=== PATIENT | female | born 1940 | race Caucasian/White ===

== ENCOUNTER 2017-01-05 05:43 | Inpatient (IN) | payer OTHER, MEDICARE ==
[~2017-01-05] VITALS: Ht 144.8 cm; Wt 76.5 kg
[~2017-01-05 05:43] MED LIST: AMLODIPINE BESYL5 MG PO; CITRATE OF MAG296 ML PO; COLACE10 MG/ML PO
[2017-01-05 06:45] VITALS: BP 190/88
[2017-01-05 16:00] VITALS: BP 148/70
[2017-01-05 20:06] VITALS: BP 112/56
[2017-01-05 23:48] VITALS: BP 101/52
[2017-01-06 04:48] VITALS: BP 115/56
[2017-01-06 06:54] LABS: HEMATOCRIT 27.5 % (36.0-46.0); MCHC 30.5 G/DL (30.0-36.0); MCV 68.8 FL (83-99); MEAN PLAT.VOLUME 9.4 uM^3 (9.5-12.4); PLATELET COUNT 311 K/uL (156-360); RBC DIS.WIDTH-CV 19.6 % (11.8-14.6); RBC DIS.WIDTH-SD 47.9 % (39-53); WHITE BLOOD COUNT 18.8 K/uL (4.1-10.2)
[2017-01-06 06:56] LABS: ANION GAP 4 MEQ/L (2-14); CHLORIDE 101 MEQ/L (99-109); GFR ESTIMATE (CALCULATED) > 59 mL/min/; GLUCOSE 185 mg/dL (70-99); MAGNESIUM 1.6 mg/dl (1.3-2.7); POTASSIUM 4.4 MEQ/L (3.7-5.4); SAMPLE HEMOLYSIS CHECK 0; SAMPLE ICTERIC CHECK 0; SAMPLE LIPEMIA CHECK 0; SODIUM 132 MEQ/L (136-147); UREA NITROGEN (BUN) 13 mg/dL (9-23)
[2017-01-06 07:00] VITALS: BP 106/55
[2017-01-06 11:28] VITALS: BP 105/55
[2017-01-06 16:17] VITALS: BP 120/57
[2017-01-06 20:04] VITALS: BP 125/60
[2017-01-06 23:20] VITALS: BP 138/60
[2017-01-07 03:14] VITALS: BP 135/60
[2017-01-07 06:21] LABS: HEMATOCRIT 26.8 % (36.0-46.0); MCH 20.6 PG (29.0-34.0); MCHC 29.9 G/DL (30.0-36.0); MCV 68.9 FL (83-99); MEAN PLAT.VOLUME 9.3 uM^3 (9.5-12.4); PLATELET COUNT 249 K/uL (156-360); RBC DIS.WIDTH-CV 19.7 % (11.8-14.6); RBC DIS.WIDTH-SD 48.1 % (39-53); RED BLOOD COUNT 3.89 M/uL (3.80-5.20)
[2017-01-07 06:38] LABS: ANION GAP 5 MEQ/L (2-14); CHLORIDE 107 MEQ/L (99-109); GFR ESTIMATE (CALCULATED) > 59 mL/min/; GLUCOSE 141 mg/dL (70-99); MAGNESIUM 1.6 mg/dl (1.3-2.7); POTASSIUM 4.3 MEQ/L (3.7-5.4); SAMPLE HEMOLYSIS CHECK 0; SAMPLE ICTERIC CHECK 0; SAMPLE LIPEMIA CHECK 0; UREA NITROGEN (BUN) 8 mg/dL (9-23)
[2017-01-07 06:40] LABS: SODIUM 141 MEQ/L (136-147)
[2017-01-07 07:05] VITALS: BP 133/99
[2017-01-07 11:40] VITALS: BP 162/70
[2017-01-07 16:57] VITALS: BP 142/78
[2017-01-07 18:58] VITALS: BP 138/70
[2017-01-07 22:46] VITALS: BP 156/76
[2017-01-08 03:49] VITALS: BP 149/67
[2017-01-08 06:32] LABS: HEMATOCRIT 26.9 % (36.0-46.0); MCH 20.5 PG (29.0-34.0); MCHC 30.1 G/DL (30.0-36.0); MCV 68.1 FL (83-99); MEAN PLAT.VOLUME 9.6 uM^3 (9.5-12.4); PLATELET COUNT 224 K/uL (156-360); RBC DIS.WIDTH-CV 19.5 % (11.8-14.6); RBC DIS.WIDTH-SD 47.7 % (39-53); RED BLOOD COUNT 3.95 M/uL (3.80-5.20); WHITE BLOOD COUNT 8.6 K/uL (4.1-10.2)
[2017-01-08 06:51] LABS: ANION GAP 4 MEQ/L (2-14); CHLORIDE 106 MEQ/L (99-109); GFR ESTIMATE (CALCULATED) > 59 mL/min/; GLUCOSE 135 mg/dL (70-99); MAGNESIUM 1.6 mg/dl (1.3-2.7); POTASSIUM 3.9 MEQ/L (3.7-5.4); SAMPLE HEMOLYSIS CHECK 0; SAMPLE ICTERIC CHECK 0; SAMPLE LIPEMIA CHECK 0; SODIUM 141 MEQ/L (136-147); UREA NITROGEN (BUN) 6 mg/dL (9-23)
[2017-01-08 08:59] VITALS: BP 174/79
[2017-01-08 09:30] VITALS: BP 152/76
[2017-01-08 16:05] VITALS: BP 152/72
[2017-01-08 20:15] VITALS: BP 174/76
[2017-01-09 00:30] VITALS: BP 150/80
[2017-01-09 04:26] VITALS: BP 152/83
[2017-01-09 06:46] LABS: HEMATOCRIT 27.4 % (36.0-46.0); MCH 20.9 PG (29.0-34.0); MCV 67.3 FL (83-99); MEAN PLAT.VOLUME 9.7 uM^3 (9.5-12.4); PLATELET COUNT 245 K/uL (156-360); RBC DIS.WIDTH-CV 19.8 % (11.8-14.6); RBC DIS.WIDTH-SD 47.1 % (39-53); RED BLOOD COUNT 4.07 M/uL (3.80-5.20); WHITE BLOOD COUNT 8.6 K/uL (4.1-10.2)
[2017-01-09 07:30] LABS: ANION GAP 6 MEQ/L (2-14); CHLORIDE 105 MEQ/L (99-109); GFR ESTIMATE (CALCULATED) > 59 mL/min/; GLUCOSE 128 mg/dL (70-99); MAGNESIUM 1.6 mg/dl (1.3-2.7); POTASSIUM 3.9 MEQ/L (3.7-5.4); SAMPLE HEMOLYSIS CHECK 0; SAMPLE ICTERIC CHECK 0; SAMPLE LIPEMIA CHECK 0; SODIUM 142 MEQ/L (136-147); UREA NITROGEN (BUN) 6 mg/dL (9-23)
[2017-01-09 08:38] VITALS: BP 149/80
[2017-01-09 16:20] VITALS: BP 156/73
[2017-01-09 18:58] VITALS: BP 120/62
[2017-01-09 22:44] VITALS: BP 128/64
[2017-01-10] VITALS (8 sets, daily range): BP systolic 138–179; BP diastolic 61–81
[2017-01-10 07:19] LABS: HEMATOCRIT 27.7 % (36.0-46.0); MCH 20.1 PG (29.0-34.0); MCV 67.1 FL (83-99); MEAN PLAT.VOLUME 10.1 uM^3 (9.5-12.4); PLATELET COUNT 240 K/uL (156-360); RBC DIS.WIDTH-CV 19.6 % (11.8-14.6); RBC DIS.WIDTH-SD 46.5 % (39-53); RED BLOOD COUNT 4.13 M/uL (3.80-5.20); WHITE BLOOD COUNT 7.5 K/uL (4.1-10.2)
[2017-01-10 07:22] LABS: ANION GAP 6 MEQ/L (2-14); CHLORIDE 106 MEQ/L (99-109); GFR ESTIMATE (CALCULATED) > 59 mL/min/; GLUCOSE 130 mg/dL (70-99); POTASSIUM 3.9 MEQ/L (3.7-5.4); SAMPLE HEMOLYSIS CHECK 0; SAMPLE ICTERIC CHECK 0; SAMPLE LIPEMIA CHECK 0; SODIUM 142 MEQ/L (136-147); UREA NITROGEN (BUN) 8 mg/dL (9-23)
[2017-01-11 03:01] VITALS: BP 158/74
[2017-01-11 08:05] LABS: HEMATOCRIT 29.7 % (36.0-46.0); MCV 67.8 FL (83-99); MEAN PLAT.VOLUME 9.5 uM^3 (9.5-12.4); PLATELET COUNT 266 K/uL (156-360); RBC DIS.WIDTH-CV 20.3 % (11.8-14.6); RBC DIS.WIDTH-SD 47.8 % (39-53); RED BLOOD COUNT 4.38 M/uL (3.80-5.20); WHITE BLOOD COUNT 7.4 K/uL (4.1-10.2)
[2017-01-11 08:26] LABS: ANION GAP 11 MEQ/L (2-14); CHLORIDE 105 MEQ/L (99-109); GFR ESTIMATE (CALCULATED) > 59 mL/min/; GLUCOSE 116 mg/dL (70-99); POTASSIUM 3.9 MEQ/L (3.7-5.4); SAMPLE HEMOLYSIS CHECK 0; SAMPLE ICTERIC CHECK 0; SAMPLE LIPEMIA CHECK 0; SODIUM 141 MEQ/L (136-147); UREA NITROGEN (BUN) 9 mg/dL (9-23)
[2017-01-11 08:30] VITALS: BP 176/79
[2017-01-11 10:55] VITALS: BP 174/79
[2017-01-11 15:55] VITALS: BP 152/67
[2017-01-11 20:29] VITALS: BP 160/81
[2017-01-12 01:11] VITALS: BP 145/70
[2017-01-12 06:11] VITALS: BP 155/70
[2017-01-12 07:01] LABS: MCH 20.5 PG (29.0-34.0); MCHC 30.4 G/DL (30.0-36.0); MCV 67.5 FL (83-99); MEAN PLAT.VOLUME 9.5 uM^3 (9.5-12.4); PLATELET COUNT 236 K/uL (156-360); RBC DIS.WIDTH-CV 19.8 % (11.8-14.6); RBC DIS.WIDTH-SD 47.3 % (39-53); WHITE BLOOD COUNT 8.6 K/uL (4.1-10.2)
[2017-01-12 07:10] LABS: ANION GAP 7 MEQ/L (2-14); CHLORIDE 107 MEQ/L (99-109); GFR ESTIMATE (CALCULATED) > 59 mL/min/; GLUCOSE 105 mg/dL (70-99); POTASSIUM 3.9 MEQ/L (3.7-5.4); SAMPLE HEMOLYSIS CHECK 0; SAMPLE ICTERIC CHECK 0; SAMPLE LIPEMIA CHECK 0; SODIUM 141 MEQ/L (136-147); UREA NITROGEN (BUN) 8 mg/dL (9-23)
[2017-01-12 07:50] VITALS: BP 122/70
== END 2017-01-12 13:30 | disposition home or self-care (01) | DRG 330 ==
LOC: 2SOUTH 05:43 → 5EAST 05:43 → 2SOUTH 09:56 → 5EAST 15:03
PROVIDERS: Physician Assistant; Surgery
PROC: 0WQF0ZZ Repair Abdominal Wall, Open Approach (ICD-10-PCS; principal; 2017-01-05)
PROC: 0DBP0ZZ Excision of Rectum, Open Approach (ICD-10-PCS; principal; 2017-01-05)
PROC: 0T788DZ Dilation of Bilateral Ureters with Intraluminal Device, Via Natural or Artificial Opening Endoscopic (ICD-10-PCS; principal; 2017-01-05)
PROC: 0DBM0ZZ Excision of Descending Colon, Open Approach (ICD-10-PCS; principal; 2017-01-05)
PROC: 02HV33Z Insertion of Infusion Device into Superior Vena Cava, Percutaneous Approach (ICD-10-PCS; 2017-01-05)
DX: K43.5 Parastomal hernia without obstruction or gangrene (principal); C19 Malignant neoplasm of rectosigmoid junction; Z98.0 Intestinal bypass and anastomosis status; D62 Acute posthemorrhagic anemia; R33.9 Retention of urine, unspecified; Z93.3 Colostomy status; Z85.048 Personal history of other malignant neoplasm of rectum, rectosigmoid junction, and anus; I10 Essential (primary) hypertension; Z80.3 Family history of malignant neoplasm of breast; Z68.36 Body mass index [BMI] 36.0-36.9, adult
CPT/HCPCS: 71010; 74000; 80048; 83735; 84100; 85027; 86900; 86901; 86920; 88304; 88305; 94799; C1758; C1769; J1100; J1335; J1885; J2270; J2274; J3010; J3480; J7050; J7120